=== PATIENT | male | born 1945 | race Caucasian/White ===

== ENCOUNTER 2022-07-06 13:10 | Emergency (ER) | payer OTHER ==
[~2022-07-06] VITALS: Ht 173 cm; Wt 72.6 kg
[2022-07-06 13:20] VITALS: BP 157/90
--- NOTE | 2022-07-06 13:45 | ED EENT ---
History of Present Illness General Chief Complaint: Eye Problems Stated Complaint: RT EYE ISSUE Nursing Triage Note: PT AMB TO ED BY POV WITH C/O REDNESS IN R EYE SINCE Tuesday. PT FLEW INTO TOWN TUES[place] NIGHT FROM [place]. PT WAS SEEN BY [facility] IN [place] TODAY AND WAS INSTRUCTED TO COME TO ED. DENIES CHANGES IN VISUAL ACUITY OR EYE PAIN. Source: patient Exam Limitations: no limitations History of Present Illness Date Seen by Provider: July 06, 2022 Time Seen by Provider: 13:55 Initial Comments 76-year-old male presents to the ED with complaints of redness to his right eye. Denies any known injury, denies straining. Denies pain, vision changes, drainage from eye. Patient's reports that this first appeared Tuesday. She states that night she had a nightmare, and was flailing around, thinks that she possibly hit him in the eye. is concerned, because patient has a history of brain aneurysm with clips. Allergies and Home Medications Allergies Coded Allergies: atorvastatin (Verified Allergy, Unknown, 07/06/22) celecoxib (Verified Allergy, Unknown, 07/06/22) donepezil (Verified Allergy, Unknown, 07/06/22) rosuvastatin (Verified Allergy, Unknown, 07/06/22) Patient Home Medication List Home Medication List Reviewed: Yes Review of Systems Review of Systems Constitutional: no symptoms reported Eyes: Denies Drainage, Denies Pain, Denies Vision Changes; Glasses, Other (Redness) Past Kmcgbnc-Bstsaz-Icvzew Hx Patient Social History Tobacco Use?: No Use of E-Cig and/or Vaping dev: No Substance use?: No Alcohol Use?: No Pt feels they are or have been: No Immunizations Up To Date Influenza Vaccine Up-to-Date: Yes; Up-to-Date First/Initial COVID19 Vaccinat: X4 Second COVID19 Vaccination [place]: X4 Third COVID19 Vaccination Date: X4 Past Medical History Surgery/Hospitalization HX: CVA, DM BRAIN ANUERSYM CLIPPED, ROTATOR CUFF Physical Exam Vital Signs Vital Signs - First Documented 07/06/22 13:20 Temp 36.5 Pulse 70 Resp 14 B/P (MAP) 157/90 (112) Pulse Ox 97 O2 Delivery Room Air Height, Weight, BMI Height: '" Weight: lbs. oz. kg; 24.00 BMI Method: General Appearance: WD/WN, no apparent distress Eyes: right eye conjunctival hemorrhage, right eye other (Green-colored bruising noted under right eye) Neck: supple, normal inspection Cardiovascular: regular rate, rhythm Respiratory: lungs clear, normal breath sounds, no respiratory distress, no accessory muscle use Neurologic/Psychiatric: alert, normal mood/affect Skin: normal color, warm/dry Progress/Results/Core Measures Results/Orders Vital Signs/I&O 07/06/22 13:20 Temp 36.5 Pulse 70 Resp 14 B/P (MAP) 157/90 (112) Pulse Ox 97 O2 Delivery Room Air Blood Pressure Mean: 112 Progress Progress Note : Progress Note Patient seen and evaluated, resting comfortably in recliner, no acute distress. Based on exam and symptoms, this is likely a subconjunctival hemorrhage. This was discussed with patient and . Discharge instructions and return precautions provided. Departure Impression Primary Impression: Subconjunctival hemorrhage Disposition: 01 HOME, SELF-CARE Condition: Stable Departure-Patient Inst. Decision time for Depature: 14:08 Referrals: NO,LOCAL PHYSICIAN (PCP/Family) Primary Care Physician Patient Instructions: Subconjunctival Hemorrhage Add. Discharge Instructions: This will heal on its own. Follow-up with primary care provider. Return for vision changes, eye pain, or any other new, concerning, or worsening symptoms. All discharge instructions reviewed with patient and/or family. Voiced understanding. OSWALDO HAIDER APRN July 06, 2022 13:45
== END 2022-07-06 14:18 | disposition home or self-care (01) ==
LOC: ER 13:17
DX: H11.31 Conjunctival hemorrhage, right eye (principal)
CPT/HCPCS: 99281